=== PATIENT | male | born 1990 | race Caucasian/White ===

== ENCOUNTER 2021-07-10 00:48 | Emergency (ER) | payer OTHER ==
[~2021-07-10] VITALS: Ht 172.7 cm; Wt 48.0 kg
[2021-07-10 05:25] VITALS: BP 115/86
[2021-07-10] MEDS ORDERED: HYDR-3965 PO (06:07)
[2021-07-10] MEDS ORDERED: AMOX-117 PO (06:07)
== END 2021-07-10 06:28 | disposition home or self-care (01) ==
LOC: ER 00:49
DX: K02.9 Dental caries, unspecified (principal); K08.89 Other specified disorders of teeth and supporting structures; F17.200 Nicotine dependence, unspecified, uncomplicated
CPT/HCPCS: 99283

== ENCOUNTER 2021-10-05 13:44 | Emergency (ER) | payer BC, OTHER ==
[~2021-10-05] VITALS: Ht 172.7 cm; Wt 50.0 kg
[2021-10-05 15:07] VITALS: BP 122/94
[2021-10-05] MEDS ORDERED: ondansetron/PF 4mg/2ml inj IV ONE (15:30)
[2021-10-05] MEDS ORDERED: normal saline 1000ML IV soln IVB ONE (15:30)
[2021-10-05 15:41] LABS: BASOPHILS % (AUTO) 0.1 % (0-1); EOSINOPHILS % (AUTO) 0.2 % (0-6); HEMATOCRIT 44.8 % (42.0-52.0); HEMOGLOBIN 15.3 g/dl (14.0-17.9); LYMPHOCYTES # (AUTO) 1.1 X10'3 (1.1-4.8); MEAN CORPUSCULAR HEMOGLOBIN 32.1 PG (27.0-31.0); MEAN CORPUSCULAR HGB CONC 34.1 g/dL (33.0-36.5); MEAN CORPUSCULAR VOLUME 94.2 FL (78-98); MEAN PLATELET VOLUME 7.3 FL (7.4-10.4); MONOCYTES # (AUTO) 0.9 X10'3 (0-0.9); MONOCYTES % (AUTO) 7.3 % (2-12); NEUTROPHILS # (AUTO) 10.3 X10'3 (1.8-7.7); NEUTROPHILS % (AUTO) 83.4 % (42-75); PLATELET COUNT 278 X10'3 (140-440); RED BLOOD COUNT 4.76 X10'6 (4.70-6.10); RED CELL DISTRIBUTION WIDTH 13.4 % (11.5-14.5); WHITE BLOOD COUNT 12.4 X10'3 (4.5-11.0)
[2021-10-05 15:56] LABS: ALANINE AMINOTRANSFERASE 25 U/L (12-78); ALBUMIN 4.3 G/DL (3.4-5.0); ALBUMIN/GLOBULIN RATIO 1.2 (1.1-1.5); ALKALINE PHOSPHATASE 93 IU/L (46-116); ANION GAP 9 (8-16); ASPARTATE AMINO TRANSFERASE 19 U/L (10-37); BILIRUBIN,TOTAL 0.4 MG/DL (0.1-1.0); BLOOD UREA NITROGEN 13 MG/DL (7-18); BUN/CREATININE RATIO 20.6 (5.4-32.0); CHLORIDE 101 MMOL/L (99-107); CREATININE 0.63 MG/DL (0.60-1.10); GLUCOSE 145 MG/DL (70-104); LIPASE < 50 U/L (73-393); POTASSIUM 3.5 MMOL/L (3.5-5.1); SODIUM 136 MMOL/L (135-145); TOTAL CARBON DIOXIDE 26.2 MMOL/L (24-32); TOTAL PROTEIN 7.8 G/DL (6.4-8.2); eGFR > 90 ML/MIN
[2021-10-05] MEDS ORDERED: POLY119P2 PO (18:35)
[2021-10-05] MEDS ORDERED: ONDA4TAB12 PO (18:36)
== END 2021-10-05 18:49 | disposition home or self-care (01) ==
LOC: ER 13:45
DX: R10.84 Generalized abdominal pain (principal); K59.00 Constipation, unspecified; R11.10 Vomiting, unspecified
CPT/HCPCS: 36415; 74176; 80053; 83690; 85025; 99284

== ENCOUNTER 2023-02-24 21:48 | Emergency (ER) | payer BC, MEDICAID ==
[~2023-02-24] VITALS: Ht 172.7 cm; Wt 47.3 kg
[~2023-02-24 21:48] MED LIST: ONDA4TAB12 PO; POLY119P2 PO
[2023-02-24 22:10] LABS: BASOPHILS # (AUTO) 0.1 X10'3 (0-0.2); BASOPHILS % (AUTO) 0.4 % (0-1); EOSINOPHILS # (AUTO) 0.1 X10'3 (0-0.9); EOSINOPHILS % (AUTO) 0.4 % (0-6); HEMATOCRIT 44.5 % (42.0-52.0); LYMPHOCYTES # (AUTO) 2.4 X10'3 (1.1-4.8); LYMPHOCYTES % (AUTO) 14.8 % (21-51); MEAN CORPUSCULAR HEMOGLOBIN 31.3 PG (27.0-31.0); MEAN CORPUSCULAR HGB CONC 33.7 g/dL (33.0-36.5); MEAN CORPUSCULAR VOLUME 92.9 FL (78-98); MEAN PLATELET VOLUME 7.3 FL (7.4-10.4); MONOCYTES # (AUTO) 1.2 X10'3 (0-0.9); MONOCYTES % (AUTO) 7.6 % (2-12); NEUTROPHILS # (AUTO) 12.3 X10'3 (1.8-7.7); NEUTROPHILS % (AUTO) 76.8 % (42-75); PLATELET COUNT 338 X10'3 (140-440); RED BLOOD COUNT 4.79 X10'6 (4.70-6.10)
[2023-02-24] MEDS ORDERED: OMEP40CA21 PO (22:20)
[2023-02-24] MEDS ORDERED: BUPR8TAB4 SL (22:20)
[2023-02-24] MEDS ORDERED: SUCR1TAB PO (22:20)
--- NOTE | 2023-02-24 22:21 | NUR ---
this primary rn has has last name as pt but no relationship to pt.
[2023-02-24 22:25] LABS: ALANINE AMINOTRANSFERASE 21 U/L (12-78); ALBUMIN 4.3 G/DL (3.4-5.0); ALBUMIN/GLOBULIN RATIO 1.3 (1.1-1.5); ALKALINE PHOSPHATASE 128 IU/L (46-116); ANION GAP 11 (8-16); ASPARTATE AMINO TRANSFERASE 12 U/L (10-37); BILIRUBIN,TOTAL 0.3 MG/DL (0.1-1.0); BLOOD UREA NITROGEN 14 MG/DL (7-18); BUN/CREATININE RATIO 20.9 (10.0-20.0); CHLORIDE 104 MMOL/L (99-107); CREATININE 0.67 MG/DL (0.60-1.10); ETHANOL < 0.010 GM/DL (0.0-0.010); GLUCOSE 121 MG/DL (70-104); POTASSIUM 3.7 MMOL/L (3.5-5.1); SODIUM 138 MMOL/L (135-145); TOTAL CARBON DIOXIDE 22.8 MMOL/L (24-32); TOTAL PROTEIN 7.5 G/DL (6.4-8.2); eGFR > 90 ML/MIN
--- NOTE | 2023-02-24 22:26 | NUR ---
pt in room beself stating " mama i can hear you" loudly.
[2023-02-24] MEDS ORDERED: haloperidol 5mg tablet PO ONE (22:40)
[2023-02-24] MEDS ORDERED: LORazepam 1 MG tablet PO ONE (22:40)
[2023-02-24] MEDS ORDERED: diphenhydrAMINE 25mg capsule PO ONE (22:40)
--- NOTE | 2023-02-24 22:45 | NUR ---
HE HAS WALKED OUT OF HIS ROOM TWICE.
--- NOTE | 2023-02-24 23:37 | NUR ---
pt moved to rm 24.
--- NOTE | 2023-02-24 23:47 | NUR ---
The patient to bed 24 and was cooperative with the move. He did provide a urine sample. He is currently resting on his bed.
[2023-02-25] MEDS ORDERED: quetiapine 100mg tablet PO STA (00:12)
--- NOTE | 2023-02-25 00:13 | NUR ---
The patient is periodically calling out and stated he is hearing voices and is scared. Dr. Ramon made aware. Orders received.
[2023-02-25 00:24] LABS: URINE AMPHETAMINE SCREEN NEGATIVE (Neg); URINE BARBITUATE SCREEN NEGATIVE (Neg); URINE BENZODIAZEPINES SCREEN NEGATIVE (Neg); URINE CANNABINOID SCREEN POSITIVE (Neg); URINE COCAINE SCREEN NEGATIVE (Neg); URINE METHADONE SCREEN NEGATIVE (Neg); URINE OPIATE SCREEN POSITIVE (Neg); URINE PHENCYCLIDINE SCREEN NEGATIVE (Neg)
--- NOTE | 2023-02-25 00:55 | NUR ---
PACKET SENT TO [facility]
--- NOTE | 2023-02-25 01:22 | NUR ---
The patient appears to be sleeping but very restlessly. He stands up and makes odd statements that are unrelated to reality. He periodically yells out loud groans. He requires frequent reassurance and he accepts redirection.
--- NOTE | 2023-02-25 01:44 | NUR ---
The patient periodically very agitated.
[2023-02-25] MEDS ORDERED: ketamine 50 mg/ml 10ml vial IM ONE (02:25)
[2023-02-25] MEDS ORDERED: ketamine 10mg/ml 20ml inj vial IM ONE (02:35)
--- NOTE | 2023-02-25 03:02 | NUR ---
The patient has been yelling and periodically very agitated and bizarre. Dr. Ramon at the bedside. Security at the bedside. Medications given after consult with pharmacy and ER credit charge authorizer. Continuous pulse ox in place.
--- NOTE | 2023-02-25 03:26 | NUR ---
The patient appears to be sleeping. He did call out very briefly. [id number] on RA HR 88 and BP 118/80
[2023-02-25] MEDS ORDERED: OLANZapine **IM** 10 mg inj. IM ONE (04:20)
--- NOTE | 2023-02-25 04:26 | NUR ---
The patient exhibiting confused and unable to show regard for his own safety. He suddenly sat up and almost fell out of bed but was able to catch himself. Discussed patient's presentation with Dr. Ramon and charge account authorizer and patient moved to bed 16 in the main ER.
[2023-02-25] MEDS ORDERED: normal saline 1000ml 1,000 ML IV ONE (04:30)
[2023-02-25] MEDS ORDERED: metoclopramide 5 mg/ml inj IV ONE (04:35)
--- NOTE | 2023-02-25 04:55 | NUR ---
pt moved back to main ED rm 16 from overflow bilateral wrist soft restraints applied. IV started and medications given. pt appears altered and states "i have HIV but havent been sick". also states "wants rehab" but won't clarify for what substance.
--- NOTE | 2023-02-25 05:03 | NUR ---
pt attempting to remove soft restraits, per dr torres- place 4 point hard restraints.
[2023-02-25] MEDS ORDERED: LORazepam 2 mg/ml vial IM ONE ×3 (05:05→09:10)
[2023-02-25 05:31] LABS: CREATINE KINASE 162 U/L (39-308)
[2023-02-25] MEDS ORDERED: thiamine 100mg/ml 2ml inj. IV ONE (06:00)
[2023-02-25 06:33] LABS: HIV ANTIBODY 1&2 RAPID NON-REACTIVE (Neg)
[2023-02-25] MEDS ORDERED: haloperidol lactate 5mg/ml inj IM ONE (07:30)
[2023-02-25] MEDS ORDERED: diphenhydrAMINE 50 mg/ml inj IM ONE (07:30)
--- NOTE | 2023-02-25 08:15 | NUR ---
RN ADMIN BENADRYL/ATIVAN/HALDOL IM AND ATTEMPTED TO REMOVE RESTRAINTS. PT IS STILL TRYING TO COME OUT OF BED AND TRIED TO SWING AT RN. PT PLACED BACK IN HARD RESTRAINTS. DR MCGRAW NOTIFIED AND CONT RESTRAINT ORD. CT NOTIFIED. PT IS UNABLE TO HOLD STILL FOR EKG.
--- NOTE | 2023-02-25 09:30 | NUR ---
PER DR MCGRAW RN MAY CONT ORD FOR RESTRAINTS.
[2023-02-25] MEDS ORDERED: dexmedetomidin/NS 400mcg/100ml 100 ML IV SCH (10:05)
--- NOTE | 2023-02-25 10:50 | NUR ---
pt iv infilitrated left forearm. changed urine linens, admin ativan im. Put pulse ox sticky on toe.
--- NOTE | 2023-02-25 11:30 | NUR ---
PER DR MCGRAW RN MAY CONT ORD FOR RESTRAINTS.
--- NOTE | 2023-02-25 11:57 | NUR ---
Back from CT via [facility] at this time.
[2023-02-25] MEDS ORDERED: normal saline 1000ml 1,000 ML IV SCH (12:00)
[2023-02-25] MEDS: sucralfate 1 gm tablet PO SCH ×4 (12:09→21:00)
[2023-02-25] MEDS: pantoprazole 40mg Tablet.DR PO SCH (12:09)
[2023-02-25 13:17] LABS: CREATINE KINASE 1369 U/L (39-308)
--- NOTE | 2023-02-25 13:30 | NUR ---
PER DR MCGRAW RN MAY CONT ORD FOR RESTRAINTS.
[2023-02-25 14:27] LABS: APPEARANCE,CSF CLEAR; CSF SUPERNATANT COLOR COLORLESS; CSF VOLUME 4 ML
[2023-02-25 14:28] LABS: TUBE# COUNTED 4
[2023-02-25 14:31] LABS: CSF RBC 1 /CU MM (0); CSF WBC CT 1 /CU MM (0-5)
[2023-02-25 14:45] LABS: GLUCOSE,CSF 68 MG/DL (40-75); TOTAL PROTEIN,CSF 47 MG/DL (15-45)
--- NOTE | 2023-02-25 15:18 | NUR ---
Patient up to bedside commode at this time, able to transfer independently.
[2023-02-25 15:24] LABS: CLARITY,URINE CLEAR (Clear); COLOR,URINE STRAW (Yellow); GLUCOSE, URINE NEGATIVE (Neg); KETONES,URINE 15 mg/dl (Neg); LEUKOCYTE ESTERASE ,URINE NEGATIVE (Neg); NITRITES, URINE NEGATIVE (Neg); OCCULT BLOOD,URINE NEGATIVE (Neg); PROTEIN,URINE NEGATIVE (Neg); UROBILINOGEN,URINE 0.2 E.U/dL (0.2-1.0)
[2023-02-25 15:32] LABS: UA COLLECTION TYPE STRAIGHT CATH
--- NOTE | 2023-02-25 15:38 | NUR ---
RN RETURNED PRECEDEX DRIP TO PHARMACY. PER DR MCGRAW NO LONGER NEEDED.
--- NOTE | 2023-02-25 15:46 | NUR ---
pt awake and oriented x3. pt agreed to stay in bed and cooperate and rn educated pt that she would leave the restraints off. rn will cont to monitor.
[2023-02-25] MEDS ORDERED: aspirin 325mg tablet PO ONE (15:55)
--- NOTE | 2023-02-25 16:59 | NUR ---
RN COMPLETED MRI FORM WITH PT MOTHER CATARINO LIMA AND PT SIGNED FORM AFTER RN REVIEWED IT WITH HIM. PT WILL BE TAKEN TO MRI WITH RN AND SECURITY.
--- NOTE | 2023-02-25 19:15 | NUR ---
Patient arrived from main ER. Report from Gerri cook night. Patient is oriented to person only. W/D, good color.
--- NOTE | 2023-02-25 19:37 | NUR ---
Packet resent to [facility] Office.
--- NOTE | 2023-02-25 20:13 | NUR ---
Patient is sleeping on his left side. He has self repositioned. Per ER MD who came by to check in on patients status, the patient was oriented X3 earlier.
--- NOTE | 2023-02-25 20:46 | NUR ---
Patient is sleeping quietly. In view from nurses station. A sitter is present as patient is a fall risk.
--- NOTE | 2023-02-25 21:00 | NUR ---
Patimandit repositions self in bed and talks in his sleep. Good color.
--- NOTE | 2023-02-25 21:04 | NUR ---
Patient has no IV, it is unknown when it was DC'd or how much fluid patient received.
--- NOTE | 2023-02-25 21:21 | NUR ---
Patients 5150 is invalid per [facility]. [facility] documentation [facility]. This securities underwriter will speak with RAISSA BARON about a 1799 order/hold. A second packet was sent to [facility] office.
--- NOTE | 2023-02-25 22:32 | NUR ---
Patient continues to sleep quietly. No distress. Good color.
--- NOTE | 2023-02-26 00:04 | NUR ---
Patient awakened, he complains of "I'm not feeling good," he complains of depression and anxiety too. Patient drinks some water and did not eat any food. This curriculum writer advised Dr. Luna. Michael ordered.
[2023-02-26] MEDS ORDERED: OLANZapine 2.5MG tablet PO ONE (00:05)
[2023-02-26] MEDS ORDERED: LORazepam 1 MG tablet PO ONE ×2 (00:05→09:30)
--- NOTE | 2023-02-26 00:27 | NUR ---
Patient awoke, somewhat restless. Patient re-oriented to time. He states he will try to sleep.
--- NOTE | 2023-02-26 03:02 | NUR ---
Patient up to bathroom then back to bed.
--- NOTE | 2023-02-26 05:03 | NUR ---
Patient sleeping on his right side, no distress.
--- NOTE | 2023-02-26 07:00 | NUR ---
Received Pt in bed sleeping w/o distress at this time. Will continue to monitor.
[2023-02-26] MEDS: sucralfate 1 gm tablet PO SCH ×4 (08:21→22:05)
[2023-02-26] MEDS: pantoprazole 40mg Tablet.DR PO SCH (08:21)
--- NOTE | 2023-02-26 09:00 | NUR ---
Pt woke and ate breakfast after taking AM meds w/o issue. Pt making loud sounds at times and wants to leave unit to smoke. Pt responds well to redirection.
[2023-02-26] MEDS ORDERED: nicotine 14mg patch - 24hr TD ONE (09:30)
--- NOTE | 2023-02-26 12:35 | NUR ---
Pt ate portion of lunch and visited with mom. Pt able to smile at joking and responds well to reassurance that he is doing well and is being kept safe.
--- NOTE | 2023-02-26 14:53 | NUR ---
Order obtained from MD for nicotine patch and was placed on left shoulder. Pt also received Ativan 1mg PO for anxiety.
[2023-02-26] MEDS: acetaminophen 325mg tablet PO PRN ×2 (15:34→22:05)
--- NOTE | 2023-02-26 16:35 | NUR ---
Pt given tylenol for schmid with good effect. He continues to make loud grunting sounds and is intermitently tearful. Pt needs reasurance frequently.
--- NOTE | 2023-02-26 17:27 | NUR ---
Pt attemted to get into another Pt's belongings and needed firm redirection. Pt loud in bed and yelling and cursing at times. Pt responds to redirection.
[2023-02-26] MEDS: NICOTINE POLACRILEX 2 MG LOZENGE BC PRN ×2 (17:47→19:50)
--- NOTE | 2023-02-26 18:30 | NUR ---
assumed care of pt from Martin IVORY, pt is resting quietly on bed, talks loudly once in awhile. Pt is redirectable, cooperative
--- NOTE | 2023-02-26 19:24 | NUR ---
pt is resting quietly.
[2023-02-26] MEDS: LORazepam 1 MG tablet PO PRN (19:51)
--- NOTE | 2023-02-26 19:51 | NUR ---
pt asking to smoke, threatening leave, pt is redirectable and agreed to stay, gave pt nicotine lozenge and ativan
--- NOTE | 2023-02-26 20:29 | NUR ---
pt keeps c/o of headache, pt has lumbar puncture yesterday, Dr Rodríguez aware and instructed me to have pt drink water and lie flat, also gave verbal order for benadyl 50mg PO for insomnia
[2023-02-26] MEDS ORDERED: diphenhydrAMINE 25mg capsule PO ONE (20:35)
--- NOTE | 2023-02-26 20:57 | NUR ---
pt c/o headache, instructed pt to sip water and lie flat, pt is cooperative
--- NOTE | 2023-02-26 22:16 | NUR ---
pt said headache is gone, has been trying to sleep flat and sipping water. Restless off and on in bed
--- NOTE | 2023-02-26 23:02 | NUR ---
pt is sleeping, resp even and unlabored
--- NOTE | 2023-02-26 23:59 | NUR ---
pt has been sleeping, amb with steady gait to restroom
[2023-02-27] MEDS: LORazepam 1 MG tablet PO PRN ×4 (01:00→19:48)
--- NOTE | 2023-02-27 01:03 | NUR ---
ASSUMED CARE, PATIENT C/O HEADACHE, PLACED HEAD OF BED DOWN, GAVE WARM BLANKET AND GAVE PRN ATIVAN 1MG FOR AGIGATION
--- NOTE | 2023-02-27 02:05 | NUR ---
Patient laying on backside, crying out this investigative writer is sitiing with patient per his request, seems to help keep him quiter so that he is not waking up the unit
[2023-02-27] MEDS ORDERED: QUEtiapine 25mg tablet PO ONE (03:10)
[2023-02-27] MEDS ORDERED: ibuprofen 200mg tablet PO ONE (03:10)
--- NOTE | 2023-02-27 03:13 | NUR ---
Patient c/o headache, VORB Dr Josefina minaya. Patietn aware it will take a few mins to process
--- NOTE | 2023-02-27 03:41 | NUR ---
Patient trying to lay flat in bed, warm blanket given, re-covered patient patient is still restless
--- NOTE | 2023-02-27 04:35 | NUR ---
Patient is sleeping on his back snoring
--- NOTE | 2023-02-27 05:23 | NUR ---
Patient ambulated to the restroom, then laid back down
--- NOTE | 2023-02-27 06:03 | NUR ---
Patient request to walk in front of his room. Patient continues to yell out at random times, somewhat re-directable
--- NOTE | 2023-02-27 06:30 | NUR ---
Pt screaming and yelling constantly that his head hurts and he can't take it. Pt c/o 06/29 "boom boom" pounding headache pain. Pt will not stop yelling. Pt had a lumbar puncture in the afternoon on 02/25/23.
[2023-02-27] MEDS ORDERED: morphine 4 MG/ML inj SYRINge IM ONE (06:40)
[2023-02-27] MEDS ORDERED: LORazepam 1 MG tablet PO ONE ×2 (06:40→18:40)
--- NOTE | 2023-02-27 07:00 | NUR ---
Obtained orders from Dr Escobar for an additional Ativan 1 mg PO and Morphine 4 mg IM once. PO Ativan given at 0645. IM Morphine given at 0653 in left ventrogluteal.
--- NOTE | 2023-02-27 07:15 | NUR ---
Pt c/o nausea, asked for emesis bag. Pt given an emesis bag but managed to not throw up.
--- NOTE | 2023-02-27 07:30 | NUR ---
Pt expressed relief from his headache pain.
--- NOTE | 2023-02-27 07:30 | NUR ---
Tomas izaguirre in [facility] - 02/27/23 at 0956 by [email or web address] Patient resting in bed, talking to himself occasionally. No signs of distress.
--- NOTE | 2023-02-27 08:33 | NUR ---
Pt Pt is pleasantly disorganized. Pt asked, "Is my name Megan? Do I have big boobs?" Pt asked if he was in [place].
[2023-02-27] MEDS: pantoprazole 40mg Tablet.DR PO SCH (09:08)
[2023-02-27] MEDS: sucralfate 1 gm tablet PO SCH ×4 (09:09→19:56)
--- NOTE | 2023-02-27 10:03 | NUR ---
Note dmitriy in EDM - 02/27/23 at 1005 by KYAW Vital signs obtained. Vital signs were not done by noc shift this morning while pt was awake,yelling, and in severe pain.
--- NOTE | 2023-02-27 10:05 | NUR ---
Vital signs obtained. Vital signs were not done by noc shift this morning while pt was awake,yelling, and in severe pain.
[2023-02-27] MEDS: nicotine 14mg patch - 24hr TD SCH (10:48)
[2023-02-27] MEDS: acetaminophen 325mg tablet PO PRN (10:51)
--- NOTE | 2023-02-27 10:51 | NUR ---
Pt moaning and calling out. C/o headache pain again 02/27. PRN Tylenol 650 mg given at 1051. Also applied a 14 mg nicotine patch per patient request.
--- NOTE | 2023-02-27 12:00 | NUR ---
Pt lying in bed appears to be responding to internal stimuli at times, talking to himself.
--- NOTE | 2023-02-27 13:48 | NUR ---
pt mom's phone number is
[2023-02-27] MEDS: NICOTINE POLACRILEX 2 MG LOZENGE BC PRN ×2 (13:56→17:39)
--- NOTE | 2023-02-27 13:59 | NUR ---
Pt was crying and yelling stating "my brain is melting! I can't take another headache like this! I've got a headache from [place], Fuck, God! This fucking hurts." Notified Dr Escobar who gave order for [place] 10/325 mg PO Q8H PRN.
[2023-02-27] MEDS: HYDROcodone/acetaminophen 10/325mg tab PO PRN (14:20)
--- NOTE | 2023-02-27 14:24 | NUR ---
Dr Escobar instructed to give the patient caffeinated coffee or soda. Pt provided with 2 cups of regular caffeinated coffee. [place] 10/325 mg given at 1420.
--- NOTE | 2023-02-27 16:09 | NUR ---
Pt up to the bathroom.
--- NOTE | 2023-02-27 16:52 | NUR ---
Pt is asking if he is being discharged. Educated pt that the doctor has not cleared him for discharge. Asked pt if he lived in [place]. Pt replied,"yeah." Asked how he would get to [place]. Pt replied, "well if we're at [facility], I could get there pretty easy." Pt now is A/O X 2, oriented to person and place. Asked pt the date, pt stated, "I want to say that [birth year]is it March 13 2022?" Reoriented pt to today's date. Pt states that his parents could come and pick him up. Asked if he lived with his parents. Pt replied, "yeah, at the moment."
--- NOTE | 2023-02-27 18:30 | NUR ---
Patient c/o of headache 04/29, anxiety 04/29. Orders obtained from Dr. Rodríguez for [place] 10/325 x1 po and Ativan 1 mg x1 po. Pt is moaning in pain. RR even and unlabored.
[2023-02-27] MEDS ORDERED: HYDROcodone/acetaminophen 10/325mg tab PO ONE (18:40)
--- NOTE | 2023-02-27 19:50 | NUR ---
Patient's pain is still at an 8. Pt stated it's constant pressure in front of the head. 2nd Ativan 1mg given at 1948. dr Rodríguez gave order for one time [place] 5/325mg po. Pt still ,complaining of pain.
[2023-02-27] MEDS ORDERED: HYDROcodone/acetaminophen 5mg/325mg tablet PO ONE (19:55)
--- NOTE | 2023-02-27 20:47 | NUR ---
Patient still having pain, moaning loudly and crying out in pain at times. RR at 14 regular rate.
--- NOTE | 2023-02-27 21:50 | NUR ---
Patient is now snoring inbetween yelling out "Ow". RR even and unlabored. Pt is supine in bed.
--- NOTE | 2023-02-27 23:00 | NUR ---
Patient sleeping and will yell out at times in pain. Pt will fall back to sleep again. RR even and unlabored. monitort for safety.
--- NOTE | 2023-02-28 00:48 | NUR ---
Patient up to the bathroom with steady gait. No c/o pain while he walked by the NS. Monitor for pain and safety.
[2023-02-28] MEDS: NICOTINE POLACRILEX 2 MG LOZENGE BC PRN ×2 (00:58→17:58)
[2023-02-28] MEDS: LORazepam 1 MG tablet PO PRN ×3 (02:39→14:18)
[2023-02-28] MEDS: HYDROcodone/acetaminophen 10/325mg tab PO PRN ×2 (02:40→10:50)
--- NOTE | 2023-02-28 02:46 | NUR ---
Pt woke up in pain, moaning loudly. [place] 10/325mg and Ativan 1mg given for 6/10 pain level. Monitor for safety.
--- NOTE | 2023-02-28 04:29 | NUR ---
Pt back to sleep with intermittent moaning. RR even and unlabored, monitor for safety.
--- NOTE | 2023-02-28 06:34 | NUR ---
Assumed care from [facility] nurse. Pt in bed sleeping. RR even and unalabored. No s/s of distress. Pt in stable condition.
[2023-02-28] MEDS: pantoprazole 40mg Tablet.DR PO SCH (06:48)
[2023-02-28] MEDS: acetaminophen 325mg tablet PO PRN ×2 (06:48→14:18)
--- NOTE | 2023-02-28 07:37 | NUR ---
Pt awake in bed. Pt c/o headache. Admin Tylenol 650mg. Pt states somewhat effective for pain. Pt conts to yell out. Pt requesting to call his mom. Explained to Pt we can start calling family around 0800, Pt in agreement w/ POC.
[2023-02-28] MEDS: sucralfate 1 gm tablet PO SCH ×4 (08:03→21:00)
[2023-02-28] MEDS: nicotine 14mg patch - 24hr TD SCH (08:04)
--- NOTE | 2023-02-28 08:49 | NUR ---
Pt conts to yell out. Pt unable to control verbal outburts. Admin PRN. Pt up and down running to and from bathroom. Pt spoke to his mother.
--- NOTE | 2023-02-28 09:34 | NUR ---
Pt is calm and cooperative. Pt is laying down on his bed resting, eye are closed.
--- NOTE | 2023-02-28 10:35 | NUR ---
Pt sitting on bed. Pt conts to have verbal outburts.
--- NOTE | 2023-02-28 11:29 | NUR ---
Pt up and down. Pt conts to yell out. Pt has to be redirected.
--- NOTE | 2023-02-28 11:55 | NUR ---
Pt is having multiple crying episodes. Pt conts to have to be redirected.
--- NOTE | 2023-02-28 12:58 | NUR ---
Pt in bed, Pt finished his lunch. Pt is calm and cooperative.
--- NOTE | 2023-02-28 13:43 | NUR ---
Mother at bedside. Pt is being calm and cooperative.
--- NOTE | 2023-02-28 13:53 | NUR ---
Pt asked to share his lab results w/ his mother.
--- NOTE | 2023-02-28 14:35 | NUR ---
Pt walking around unit. Pt is calm.
--- NOTE | 2023-02-28 15:11 | NUR ---
Pt sitting on his bed yelling out. Pt needing to be redirected.
--- NOTE | 2023-02-28 16:10 | NUR ---
Pt in bed sleeping. Pt is calm.
--- NOTE | 2023-02-28 17:03 | NUR ---
Pt laying down in bed. Pt talking to himself, and staff.
--- NOTE | 2023-02-28 17:16 | NUR ---
Pt having multiple crying episodes
[2023-02-28] MEDS ORDERED: HYDROcodone/acetaminophen 10/325mg tab PO STA (17:50)
[2023-02-28] MEDS ORDERED: haloperidol lactate 5mg/ml inj IM STA (17:50)
--- NOTE | 2023-02-28 18:28 | NUR ---
pt. recieved awake lying in bed
--- NOTE | 2023-02-28 21:07 | NUR ---
pt. sleeping without difficulty.
--- NOTE | 2023-02-28 22:46 | NUR ---
Pt. awaken; yelled out and fell back to sleep.
--- NOTE | 2023-03-01 00:25 | NUR ---
pt. sleeping;no distress
--- NOTE | 2023-03-01 01:31 | NUR ---
pt. awake and ambulated to the restroom
[2023-03-01] MEDS: NICOTINE POLACRILEX 2 MG LOZENGE BC PRN ×3 (01:45→16:33)
[2023-03-01] MEDS: HYDROcodone/acetaminophen 10/325mg tab PO PRN ×2 (01:49→10:04)
--- NOTE | 2023-03-01 01:53 | NUR ---
pt. in bed appears to be in pain. Pt. rates pain 10/10 to head. PRN norco administered. Pt. lying in bed with blanket over his head.
[2023-03-01] MEDS: LORazepam 1 MG tablet PO PRN ×3 (02:21→17:41)
--- NOTE | 2023-03-01 02:24 | NUR ---
pt. sitting up in bed yelling out and stating "I just want to see my kids again". PRN paxton provided to pt.
--- NOTE | 2023-03-01 03:48 | NUR ---
pt. lying on left side sleeping. No distress.
--- NOTE | 2023-03-01 05:03 | NUR ---
pt. continues sleeping without difficulty.
--- NOTE | 2023-03-01 06:51 | NUR ---
Patient sleeping comfortably, breathing normally.
[2023-03-01] MEDS: pantoprazole 40mg Tablet.DR PO SCH (07:44)
[2023-03-01] MEDS: nicotine 14mg patch - 24hr TD SCH (07:45)
[2023-03-01] MEDS: sucralfate 1 gm tablet PO SCH ×4 (08:19→20:41)
--- NOTE | 2023-03-01 08:57 | NUR ---
Patient asleep comfortably at this time. Addendum: 03/01/23 at 0858 by CHARITO Patient have had episode of anxiety at earlier time and was given Ativan PO
--- NOTE | 2023-03-01 10:10 | NUR ---
Patient complaining of frontal headache, denies nausea and any other symptoms. Glidden given.
--- NOTE | 2023-03-01 11:18 | NUR ---
Patient currently sleeping comfortably, no sign of distress.
[2023-03-01] MEDS: acetaminophen 325mg tablet PO PRN ×2 (12:22→17:51)
--- NOTE | 2023-03-01 12:24 | NUR ---
Lunch tray served to the patient.
--- NOTE | 2023-03-01 13:46 | NUR ---
Mother at bedside currently.
--- NOTE | 2023-03-01 16:47 | NUR ---
Patient currently resting and calm.
--- NOTE | 2023-03-01 17:05 | NUR ---
Patient complaining of abdominal pain despite getting Sucralfate. I asked the patient when was the last time he had a bowel movement, he said to me "I don't know when!" I spoke to Dr. Encarnacion about this, received order for Dulcolax 5 mg PO PRN
--- NOTE | 2023-03-01 17:45 | NUR ---
Patient started getting anxious, pacing around and wanted to leave. The security personnel came by, talked to the patient reminded him that he was on mental health hold. Patient was redirected to his bed. Ativan PO given for anxiety and Dulcolax tab given for constipation.
[2023-03-01] MEDS: bisacodyl 5mg tablet.DR PO PRN (17:49)
--- NOTE | 2023-03-01 18:47 | NUR ---
pt resting on bed no visual signs of distress nor discomfort.
--- NOTE | 2023-03-01 19:42 | NUR ---
Pt resting comfortably, just used restroom, no complaints or changes in behavior att.
--- NOTE | 2023-03-01 21:45 | NUR ---
Pt is resting comfortably, no complaints att.
--- NOTE | 2023-03-01 23:50 | NUR ---
Pt resting comfortably att. Sleeping well.
[2023-03-02] MEDS: LORazepam 1 MG tablet PO PRN ×3 (01:49→18:00)
--- NOTE | 2023-03-02 01:55 | NUR ---
Pt is up requesting lotion for rash to right wrist, stated a doctor will round on patient in the am. Pt now resting.
[2023-03-02] MEDS: NICOTINE POLACRILEX 2 MG LOZENGE BC PRN ×2 (02:26→18:44)
--- NOTE | 2023-03-02 04:00 | NUR ---
Pt was anxious earlier, requested ativan, administered and pt is now sleeping well.
--- NOTE | 2023-03-02 06:30 | NUR ---
Patient resting in bed. Slept well through night. Received report from night nurse CARLOS AWAD. Assumed care of patient. Will continue to monitor
--- NOTE | 2023-03-02 06:30 | NUR ---
Patient resting in bed. Slept well through night. Received report from night nurse CARLOS AWAD. Assumed care of patient. Will continue to monitor
[2023-03-02] MEDS: HYDROcodone/acetaminophen 10/325mg tab PO PRN ×3 (06:46→23:21)
[2023-03-02] MEDS: pantoprazole 40mg Tablet.DR PO SCH (06:46)
[2023-03-02] MEDS: sucralfate 1 gm tablet PO SCH ×4 (08:00→20:28)
--- NOTE | 2023-03-02 08:15 | NUR ---
Patient yelling, crying and complaining of pain. PRN pain medication given for pain and was effective for a small amount of time. around 82 Addendum: 03/02/23 at 1155 by TSTUDER Patient yelling and screaming and complaining of pain. PRN pain medication given and effective short term. Patient ate breakfast then puked. Zofran ordered and given per orders and has been effective.
[2023-03-02] MEDS ORDERED: ondansetron 4mg rapidly disintigrating tab PO PRN (09:00)
[2023-03-02] MEDS: nicotine 14mg patch - 24hr TD SCH (09:16)
--- NOTE | 2023-03-02 12:00 | NUR ---
Patient sitting at end of bed eating lunch at this time and appropriate with peers and staff.
[2023-03-02 12:59] VITALS: BP 136/77
--- NOTE | 2023-03-02 13:00 | NUR ---
Patient transported to [facility] for blood patch procedure.
[2023-03-02] MEDS ORDERED: IOPAMIDOL 10 ML VIAL IT ONE (13:08)
[2023-03-02 13:14] VITALS: BP 121/77
--- NOTE | 2023-03-02 13:42 | NUR ---
Patient returned from [facility]. Alert, no c/o pain or discomfort at this time. Will continue to monitor.
--- NOTE | 2023-03-02 13:44 | NUR ---
Tomas izaguirre in [facility] - 03/02/23 at 1344 by DIGNAUDER [id number]
--- NOTE | 2023-03-02 14:25 | NUR ---
pt keeps moving and turning on his side right after procedure. As soon as he got back within 5 mins pt keeps sitting up and will not follow directions. He is refusing to lay down and keeps crossing his legs.
--- NOTE | 2023-03-02 14:29 | NUR ---
Upon returning to overflow unit post procedure, pt refused to follow post procedure instructions to lie flat and not sit up or turn on his side. pt stated he "understood" the intructions despite immediatly turning onto his side. pt has been re-educated several times of importance on lieing flat and yet pt still continues to sit up and turn on his side. attempted sitting at pt bedside to provide ongoing reminders about lieing flat but pt continues to be non compliant with directions.
--- NOTE | 2023-03-02 15:45 | NUR ---
patient will not follow any instructions from staff or peers. Will not lay flat or stay still. Does not answer appropriately when explained the importance of following the doctors post op orders after procedure. PRN norco given for pain.
--- NOTE | 2023-03-02 17:26 | NUR ---
patient has been sleeping. Woke up to eat dinner has denied any pain at this time. Will report to night nurse.
--- NOTE | 2023-03-02 20:00 | NUR ---
Patient in bed watching TV.
[2023-03-02] MEDS ORDERED: traZODone 150mg tablet PO ONE (21:30)
--- NOTE | 2023-03-02 22:01 | NUR ---
Patient in bed with eyes close
--- NOTE | 2023-03-03 00:02 | NUR ---
Patient in bed with eyes closed. Patient reported pain 4/10. Pain med effective.
[2023-03-03] MEDS: LORazepam 1 MG tablet PO PRN ×3 (00:08→12:37)
--- NOTE | 2023-03-03 02:43 | NUR ---
Patient in bed with eyes close
--- NOTE | 2023-03-03 04:00 | NUR ---
Patient in bed with eyes close
--- NOTE | 2023-03-03 05:42 | NUR ---
Pt in bed watching tb Addendum: 03/03/23 at 0543 by [email or web address] Patient in bed with eyes close. Patient in bed watching TV. Patient was cooperative this shift, took meds with no issues noted. No s/s of distress at this time.
[2023-03-03] MEDS: pantoprazole 40mg Tablet.DR PO SCH (07:38)
[2023-03-03] MEDS: sucralfate 1 gm tablet PO SCH ×4 (07:38→20:16)
[2023-03-03] MEDS: nicotine 14mg patch - 24hr TD SCH (07:39)
[2023-03-03] MEDS: triamcinolone acetonide 0.5% cream 15gm TP SCH ×2 (08:56→20:16)
--- NOTE | 2023-03-03 17:18 | NUR ---
Patient has been cooperative, and stable most of the day. The pt had a few outbursts of stating "he doesnt want to be in this mental lock down anymore & I just want by kids." Also said that to his mom while talking on the phone. Pt has been intaking nutrution well today, and using the BR. Most of the day the patient was resting in bed, while also accompanied by his parents t bedside for a couple of hours. Pt denied suicidal ideations/ haullicunations or self harm today on shift. Q15 min checks performed on shift and also in line of site today. Patient has felt minimal relief from the Triamcinolone cream that is now to be applied to his Rt forearm for [place].
[2023-03-03] MEDS: HYDROcodone/acetaminophen 10/325mg tab PO PRN (17:52)
--- NOTE | 2023-03-03 19:00 | NUR ---
Received pt finishing up with dinner tray, watching TV quietly.
[2023-03-03] MEDS: NICOTINE POLACRILEX 2 MG LOZENGE BC PRN (19:29)
[2023-03-03] MEDS ORDERED: traZODone 150mg tablet PO SCH (20:00)
--- NOTE | 2023-03-03 21:30 | NUR ---
Pt states he is doing good, states he hears voices that talk to him directly and at times thinks God is talking to him. Denies SI. Pt watched TV for awhile and appears to be sleeping.
[2023-03-04] MEDS: LORazepam 1 MG tablet PO PRN ×2 (02:20→09:50)
--- NOTE | 2023-03-04 04:28 | NUR ---
Pt appears to be sleeping
[2023-03-04 05:31] VITALS: BP 117/63
[2023-03-04] MEDS: pantoprazole 40mg Tablet.DR PO SCH (07:51)
[2023-03-04] MEDS: sucralfate 1 gm tablet PO SCH ×2 (07:51→12:17)
[2023-03-04] MEDS: triamcinolone acetonide 0.5% cream 15gm TP SCH (07:51)
[2023-03-04] MEDS: nicotine 14mg patch - 24hr TD SCH (07:51)
--- NOTE | 2023-03-04 08:50 | NUR ---
Pt took morning medication with no complaints. Pt ate breakfast at bedside. Pt currently laying in bed reading, no acute distress noted at this time.
[2023-03-04] MEDS: bisacodyl 5mg tablet.DR PO PRN (09:50)
--- NOTE | 2023-03-04 10:05 | NUR ---
Pts mom called to talk to him. While pt was talking to his mom on the phone he bagan to get very anxious and kept saying "stop putting me down". After phone call pt began pacing the unit and going in and out of the bathroom. Nurse approached pt and told him that he looks anxious and offered to get him prn ativan. Pt agreed to ativan and requested a laxative because he hasnt had a BM in days. Nuse gave both PRNs and pt currently reading on his bed.
[2023-03-04] MEDS ORDERED: OLAN10TA3 PO (12:28)
[2023-03-04] MEDS ORDERED: BUPR8TAB4 SL (12:28)
[2023-03-04] MEDS ORDERED: TRAZ150T78 PO (12:28)
[2023-03-04 17:14] LABS: LYME IGG P23 AB Absent (.); LYME IGG P28 AB Absent (.); LYME IGG P30 AB Absent (.); LYME IGG P41 AB Absent (.); LYME IGG P45 AB Absent (.); LYME IGG P58 AB Absent (.); LYME IGG P66 AB Absent (.); LYME IGG P93 AB Absent (.); LYME IGG WB INTERP Negative (.); LYME IGM P23 AB Absent (.); LYME IGM P39 AB Absent (.); LYME IGM P41 AB Absent (.); LYME IGM WB INTERP Negative (.)
== END 2023-03-04 12:41 | disposition home or self-care (01) ==
LOC: ER 21:48
DX: F15.959 Other stimulant use, unspecified with stimulant-induced psychotic disorder, unspecified (principal); Z20.822 Contact with and (suspected) exposure to COVID-19; R41.0 Disorientation, unspecified; E86.0 Dehydration
CPT/HCPCS: 36415; 70450; 80053; 80305; 80320; 81003; 82550; 82945; 82948; 83605; 84145; 84157; 84443; 85025; 86617; 86703; 87015; 87040; 87070; 87811; 89051; 99285; J1200; J1630; J2060; J2765; J3411; J3490; J7030; Q0163

== ENCOUNTER 2023-09-28 08:33 | Emergency (ER) | payer MEDICAID ==
[~2023-09-28] VITALS: Ht 172.7 cm; Wt 55.5 kg
[~2023-09-28 08:33] MED LIST changes: +BUPR8TAB4 SL; +OLAN10TA3 PO; +OMEP40CA21 PO; -ONDA4TAB12 PO; -POLY119P2 PO; +SUCR1TAB PO; +TRAZ150T78 PO
[2023-09-28 09:09] LABS: BILIRUBIN,URINE NEGATIVE (Neg); CLARITY,URINE CLEAR (Clear); COLOR,URINE YELLOW (Yellow); GLUCOSE, URINE NEGATIVE (Neg); KETONES,URINE >=80 mg/dl (Neg); LEUKOCYTE ESTERASE ,URINE NEGATIVE (Neg); NITRITES, URINE NEGATIVE (Neg); OCCULT BLOOD,URINE NEGATIVE (Neg); PH,URINE >=9.0 (4.8-8.0); PROTEIN,URINE 30 mg/dl (Neg); UROBILINOGEN,URINE 0.2 E.U/dL (0.2-1.0)
[2023-09-28 09:28] LABS: UA COLLECTION TYPE CLN CATCH MIDSTREAM
[2023-09-28 09:30] LABS: MUCUS STRANDS MODERATE /LPF (Neg); SQUAMOUS EPITHELIAL CELL,UR FEW /LPF (FEW); WBC,URINE 0-4 /HPF (0-4)
[2023-09-28 09:31] LABS: AMORPHOUS PHOSPHATES 1+; BACTERIA,URINE FEW /HPF (Neg); RBC,URINE 0-2 /HPF (0-2)
[2023-09-28 09:41] LABS: BASOPHILS % (AUTO) 0.3 % (0-1); EOSINOPHILS % (AUTO) 0.1 % (0-6); HEMATOCRIT 47.5 % (42.0-52.0); HEMOGLOBIN 16.2 g/dl (14.0-17.9); LYMPHOCYTES # (AUTO) 1.3 X10'3 (1.1-4.8); LYMPHOCYTES % (AUTO) 11.4 % (21-51); MEAN CORPUSCULAR HEMOGLOBIN 31.9 PG (27.0-31.0); MEAN CORPUSCULAR HGB CONC 34.1 g/dL (33.0-36.5); MEAN CORPUSCULAR VOLUME 93.4 FL (78-98); MEAN PLATELET VOLUME 7.6 FL (7.4-10.4); MONOCYTES # (AUTO) 0.9 X10'3 (0-0.9); MONOCYTES % (AUTO) 7.6 % (2-12); NEUTROPHILS # (AUTO) 9.5 X10'3 (1.8-7.7); NEUTROPHILS % (AUTO) 80.6 % (42-75); PLATELET COUNT 328 X10'3 (140-440); RED BLOOD COUNT 5.09 X10'6 (4.70-6.10); RED CELL DISTRIBUTION WIDTH 13.2 % (11.5-14.5); WHITE BLOOD COUNT 11.7 X10'3 (4.5-11.0)
[2023-09-28 09:55] LABS: ALANINE AMINOTRANSFERASE 23 U/L (12-78); ALBUMIN 4.5 G/DL (3.4-5.0); ALBUMIN/GLOBULIN RATIO 1.2 (1.1-1.5); ALKALINE PHOSPHATASE 140 IU/L (46-116); ANION GAP 13 (8-16); ASPARTATE AMINO TRANSFERASE 18 U/L (10-37); BILIRUBIN,TOTAL 0.7 MG/DL (0.1-1.0); BLOOD UREA NITROGEN 13 MG/DL (7-18); BUN/CREATININE RATIO 16.5 (10.0-20.0); CALCIUM 9.3 MG/DL (8.5-10.1); CHLORIDE 95 MMOL/L (99-107); CREATININE 0.79 MG/DL (0.60-1.10); GLUCOSE 108 MG/DL (70-104); LIPASE 18 U/L (16-77); POTASSIUM 3.1 MMOL/L (3.5-5.1); SODIUM 135 MMOL/L (135-145); TOTAL CARBON DIOXIDE 27.5 MMOL/L (24-32); TOTAL PROTEIN 8.3 G/DL (6.4-8.2); eCRCL 105 ML/MIN; eGFR > 90 ML/MIN
[2023-09-28 12:29] VITALS: TEMP 97.7
[2023-09-28] MEDS ORDERED: proCHLORperazine 10 MG/2 ml inj IV ONE (13:30)
[2023-09-28] MEDS ORDERED: normal saline 1000ml 1,000 ML IV ONE (13:30)
[2023-09-28] MEDS ORDERED: ondansetron/PF 4mg/2ml inj IV ONE ×2 (13:30→15:30)
[2023-09-28] MEDS ORDERED: diphenhydrAMINE 50 mg/ml inj IV ONE (13:50)
[2023-09-28] MEDS ORDERED: potassium Cl 20 mEq SR tablet PO ONE (14:00)
[2023-09-28] MEDS ORDERED: FAMO40TA73 PO (14:44)
[2023-09-28] MEDS ORDERED: ONDA4TAB12 PO (14:44)
[2023-09-28] MEDS ORDERED: PANT20TA18 PO (14:44)
[2023-09-28] MEDS ORDERED: morphine 4 MG/ML inj SYRINge IV ONE (15:30)
[2023-09-28 17:34] VITALS: BP 125/80; PULSE 92; RESP 18; O2SAT 99
== END 2023-09-28 16:33 | disposition home or self-care (01) ==
LOC: ER 08:34
DX: R11.2 Nausea with vomiting, unspecified (principal); R10.13 Epigastric pain; F12.90 Cannabis use, unspecified, uncomplicated; F15.90 Other stimulant use, unspecified, uncomplicated; Z79.899 Other long term (current) drug therapy
CPT/HCPCS: 36415; 80053; 81001; 83690; 85025; 96361; 96374; 96375; 99284; J0780; J1200; J2270; J2405; J7030

== ENCOUNTER 2023-12-26 17:09 | Emergency (ER) | payer MEDICAID ==
[~2023-12-26] VITALS: Ht 172.7 cm; Wt 52.4 kg
[~2023-12-26 17:09] MED LIST changes: +FAMO40TA73 PO; +ONDA4TAB12 PO; +PANT20TA18 PO
[2023-12-26 17:50] LABS: BASOPHILS % (AUTO) 0.1 % (0-1); EOSINOPHILS % (AUTO) 0 % (0-6); HEMATOCRIT 48.2 % (42.0-52.0); HEMOGLOBIN 16.2 g/dl (14.0-17.9); LYMPHOCYTES # (AUTO) 1.3 X10'3 (1.1-4.8); LYMPHOCYTES % (AUTO) 8.9 % (21-51); MEAN CORPUSCULAR HEMOGLOBIN 30.8 PG (27.0-31.0); MEAN CORPUSCULAR HGB CONC 33.7 g/dL (33.0-36.5); MEAN CORPUSCULAR VOLUME 91.4 FL (78-98); MEAN PLATELET VOLUME 7.9 FL (7.4-10.4); MONOCYTES # (AUTO) 0.7 X10'3 (0-0.9); MONOCYTES % (AUTO) 4.8 % (2-12); NEUTROPHILS # (AUTO) 12.6 X10'3 (1.8-7.7); NEUTROPHILS % (AUTO) 86.2 % (42-75); PLATELET COUNT 357 X10'3 (140-440); RED BLOOD COUNT 5.27 X10'6 (4.70-6.10); RED CELL DISTRIBUTION WIDTH 14.1 % (11.5-14.5); WHITE BLOOD COUNT 14.6 X10'3 (4.5-11.0)
[2023-12-26 18:01] LABS: ALANINE AMINOTRANSFERASE 16 U/L (12-78); ALBUMIN 4.9 G/DL (3.4-5.0); ALBUMIN/GLOBULIN RATIO 1.2 (1.1-1.5); ALKALINE PHOSPHATASE 186 IU/L (46-116); ANION GAP 20 (8-16); ASPARTATE AMINO TRANSFERASE 15 U/L (10-37); BILIRUBIN,TOTAL 0.7 MG/DL (0.1-1.0); BLOOD UREA NITROGEN 13 MG/DL (7-18); BUN/CREATININE RATIO 15.7 (10.0-20.0); CALCIUM 9.3 MG/DL (8.5-10.1); CHLORIDE 97 MMOL/L (99-107); CREATININE 0.83 MG/DL (0.60-1.10); GLUCOSE 133 MG/DL (70-104); LIPASE 18 U/L (16-77); POTASSIUM 3.2 MMOL/L (3.5-5.1); SODIUM 135 MMOL/L (135-145); TOTAL CARBON DIOXIDE 18.5 MMOL/L (24-32); eCRCL 95 ML/MIN; eGFR > 90 ML/MIN
[2023-12-26] MEDS: proCHLORperazine 10 MG/2 ml inj IV ONE (20:44)
[2023-12-26] MEDS: ringers solution, lacted 1,000 ML IV ONE ×2 (20:44→22:34)
[2023-12-26] MEDS: potassium Cl 20 mEq SR tablet PO ONE (20:45)
[2023-12-26] MEDS: diphenhydrAMINE 50 mg/ml inj IV ONE (20:45)
[2023-12-27 00:39] VITALS: BP 115/70; PULSE 81; RESP 16; TEMP 98.6; O2SAT 99
== END 2023-12-27 00:43 | disposition home or self-care (01) ==
LOC: ER 17:10
DX: K29.60 Other gastritis without bleeding (principal); F12.90 Cannabis use, unspecified, uncomplicated; F15.90 Other stimulant use, unspecified, uncomplicated; Z79.899 Other long term (current) drug therapy
CPT/HCPCS: 36415; 80053; 83605; 83690; 85025; 96361; 96374; 96375; 99285; J0780; J1200; J7120

== ENCOUNTER 2024-02-26 02:50 | Emergency (ER) | payer MEDICAID, OTHER ==
[~2024-02-26] VITALS: Ht 172.7 cm; Wt 54.5 kg
[2024-02-26 03:17] VITALS: BP 117/83; PULSE 109; RESP 18; TEMP 97.8; O2SAT 98
[2024-02-27] MEDS ORDERED: ONDA4TAB12 PO (11:32)
== END 2024-02-26 03:32 | disposition left against medical advice (07) ==
LOC: ER 02:51
DX: R11.2 Nausea with vomiting, unspecified (principal); R10.9 Unspecified abdominal pain; R20.0 Anesthesia of skin; Z53.21 Procedure and treatment not carried out due to patient leaving prior to being seen by health care provider

== ENCOUNTER 2024-02-26 06:34 | Inpatient (IN) | payer BC, OTHER ==
[~2024-02-26] VITALS: Ht 172.7 cm; Wt 39.1 kg
[2024-02-26] VITALS (9 sets, daily range): BP systolic 103–132; BP diastolic 59–83; PULSE 71–93; RESP 13–19; TEMP 98.6–99.7; O2SAT 92–100
[2024-02-26 07:40] LABS: BASOPHILS % (AUTO) 0.2 % (0-1); EOSINOPHILS % (AUTO) 0 % (0-6); HEMATOCRIT 55.8 % (42.0-52.0); LYMPHOCYTES # (AUTO) 1.3 X10'3 (1.1-4.8); LYMPHOCYTES % (AUTO) 5.3 % (21-51); MEAN CORPUSCULAR HEMOGLOBIN 31.3 PG (27.0-31.0); MEAN CORPUSCULAR HGB CONC 34.4 g/dL (33.0-36.5); MEAN PLATELET VOLUME 8.6 FL (7.4-10.4); MONOCYTES # (AUTO) 1.9 X10'3 (0-0.9); MONOCYTES % (AUTO) 7.8 % (2-12); NEUTROPHILS # (AUTO) 21.5 X10'3 (1.8-7.7); NEUTROPHILS % (AUTO) 86.7 % (42-75); PLATELET COUNT 350 X10'3 (140-440); RED BLOOD COUNT 6.14 X10'6 (4.70-6.10); WHITE BLOOD COUNT 24.8 X10'3 (4.5-11.0)
[2024-02-26] MEDS: diphenhydrAMINE 50 mg/ml inj IV ONE (07:42)
[2024-02-26] MEDS: acetaminophen 1,000mg/100ml IV 100 ML IV ONE (07:42)
[2024-02-26] MEDS: metoclopramide 5 mg/ml inj IV ONE (07:42)
[2024-02-26] MEDS: normal saline 1000ML IV soln IVB ONE ×2 (07:43→10:56)
[2024-02-26 07:45] LABS: HEMOGLOBIN 19.2 g/dl (14.0-17.9)
[2024-02-26 07:55] LABS: ALANINE AMINOTRANSFERASE 27 U/L (12-78); ALBUMIN/GLOBULIN RATIO 1.3 (1.1-1.5); ALKALINE PHOSPHATASE 221 IU/L (46-116); ANION GAP 21 (8-16); ASPARTATE AMINO TRANSFERASE 13 U/L (10-37); BILIRUBIN,TOTAL 0.8 MG/DL (0.1-1.0); BLOOD UREA NITROGEN 24 MG/DL (7-18); BUN/CREATININE RATIO 6.5 (10.0-20.0); CALCIUM 11.5 MG/DL (8.5-10.1); CHLORIDE 89 MMOL/L (99-107); CREATININE 3.72 MG/DL (0.60-1.10); GLUCOSE 237 MG/DL (70-104); LIPASE 14 U/L (16-77); POTASSIUM 3.4 MMOL/L (3.5-5.1); SODIUM 130 MMOL/L (135-145); TOTAL CARBON DIOXIDE 19.7 MMOL/L (24-32); TOTAL PROTEIN 10.7 G/DL (6.4-8.2); eCRCL 16 ML/MIN; eGFR 19 ML/MIN
[2024-02-26] MEDS: pantoprazole 40 MG vial IV ONE (08:14)
[2024-02-26] MEDS ORDERED: magnesium hydroxide 30ml (MOM) UD suspension PO PRN (10:15)
[2024-02-26] MEDS ORDERED: magnesium 4gm in 100ml NS 100 ML IV PRN (10:15)
[2024-02-26] MEDS ORDERED: mag hydrox/Alum hydrox/simeth 30ml oral suspension PO PRN (10:15)
[2024-02-26] MEDS ORDERED: magnesium 2GM in 50ml NS 50 ML IV PRN (10:15)
[2024-02-26] MEDS ORDERED: LIDOcaine 2% Viscous 15ml cup MM PRN (10:15)
[2024-02-26] MEDS ORDERED: acetaminophen 325mg tablet PO PRN (10:15)
[2024-02-26] MEDS ORDERED: potassium Cl 20 mEq SR tablet PO PRN ×2 (10:15)
[2024-02-26] MEDS ORDERED: magnesium Cl slow-release 64mg tablet PO PRN (10:15)
[2024-02-26] MEDS: morphine 2 MG/ML inj. syringe IV PRN (10:35)
[2024-02-26] MEDS: sucralfate 1 gm tablet PO ONE (10:37)
[2024-02-26] MEDS: mag hydrox/Alum hydrox/simeth 30ml oral suspension PO ONE (10:37)
[2024-02-26] MEDS: pantoprazole 40MG/NS 100ML BAG 100 ML IV SCH (10:37)
[2024-02-26] MEDS: piperacillin/tazo 3.375gm/50ml 50 ML IV SCH (10:40)
[2024-02-26] MEDS: normal saline 1000ml 1,000 ML IV SCH (10:57)
[2024-02-26 10:59] LABS: APTT 31 SECONDS (22-32); INR 1.2 INR; PROTHROMBIN TIME 12.3 SECONDS (9.0-12.0)
[2024-02-26 11:12] LABS: MAGNESIUM 1.8 MG/DL (1.5-2.4)
[2024-02-26] MEDS: nicotine 14mg patch - 24hr TD ONE (12:35)
[2024-02-26 13:54] LABS: BILIRUBIN,URINE SMALL (Neg); CLARITY,URINE SLIGHTLY CLOUDY (Clear); COLOR,URINE YELLOW (Yellow); GLUCOSE, URINE NEGATIVE (Neg); KETONES,URINE TRACE mg/dl (Neg); LEUKOCYTE ESTERASE ,URINE NEGATIVE (Neg); NITRITES, URINE NEGATIVE (Neg); OCCULT BLOOD,URINE TRACE-INTACT (Neg); PROTEIN,URINE 100 mg/dl (Neg); UROBILINOGEN,URINE 0.2 E.U/dL (0.2-1.0)
[2024-02-26 14:00] LABS: UA COLLECTION TYPE CLN CATCH MIDSTREAM
[2024-02-26 14:01] LABS: BACTERIA,URINE NONE SEEN /HPF (Neg); CAL OXALATE CRYSTALS 1+ /HPF (NEGATIVE); HYALINE CASTS 0-3 /LPF (NEGATIVE); MUCUS STRANDS FEW /LPF (Neg); RBC,URINE 0-2 /HPF (0-2); SQUAMOUS EPITHELIAL CELL,UR FEW /LPF (FEW); TRANSITIONAL EPI CELLS,URINE FEW /HPF; WBC,URINE 0-4 /HPF (0-4)
[2024-02-26 14:21] LABS: URINE AMPHETAMINE SCREEN NEGATIVE (Neg); URINE BARBITUATE SCREEN NEGATIVE (Neg); URINE BENZODIAZEPINES SCREEN NEGATIVE (Neg); URINE CANNABINOID SCREEN POSITIVE (Neg); URINE COCAINE SCREEN NEGATIVE (Neg); URINE METHADONE SCREEN NEGATIVE (Neg); URINE PHENCYCLIDINE SCREEN NEGATIVE (Neg)
[2024-02-26] MEDS: potassium Cl 40MEQ/1/2NS 520ml 520 ML IV PRN (14:44)
[2024-02-26] MEDS ORDERED: MIDAZolam 1 MG/ML 5ML VIAL ONE (15:12)
[2024-02-26] MEDS ORDERED: fentaNYL/PF 50MCG/1 ML 2ML syringe ONE (15:12)
[2024-02-26] MEDS ORDERED: LIDOcaine 2% Viscous 15ml cup ONE (15:13)
[2024-02-26] MEDS ORDERED: diphenhydrAMINE 50 mg/ml inj ONE (15:20)
[2024-02-26] MEDS: K and/or MAG REPLACEMENT MC SCH (19:56)
[2024-02-26] MEDS: docusate sod 100mg capsule PO SCH (20:02)
[2024-02-26] MEDS: ondansetron/PF 4mg/2ml inj IV PRN (21:05)
[2024-02-26] MEDS: Melatonin 3mg tablet PO SCH ×2 (22:58→23:05)
[2024-02-27] MEDS: morphine 2 MG/ML inj. syringe IV ONE (00:24)
[2024-02-27 06:00] VITALS: BP 114/79; PULSE 91; RESP 15; TEMP 98.7; O2SAT 99
[2024-02-27 07:01] LABS: BASOPHILS % (AUTO) 0.1 % (0-1); EOSINOPHILS % (AUTO) 0.1 % (0-6); HEMATOCRIT 36.7 % (42.0-52.0); HEMOGLOBIN 12.4 g/dl (14.0-17.9); LYMPHOCYTES # (AUTO) 1.3 X10'3 (1.1-4.8); LYMPHOCYTES % (AUTO) 14.4 % (21-51); MEAN CORPUSCULAR HEMOGLOBIN 31.6 PG (27.0-31.0); MEAN CORPUSCULAR HGB CONC 33.9 g/dL (33.0-36.5); MEAN CORPUSCULAR VOLUME 93.3 FL (78-98); MEAN PLATELET VOLUME 8.5 FL (7.4-10.4); MONOCYTES # (AUTO) 0.8 X10'3 (0-0.9); NEUTROPHILS # (AUTO) 6.9 X10'3 (1.8-7.7); NEUTROPHILS % (AUTO) 76.4 % (42-75); PLATELET COUNT 192 X10'3 (140-440); RED BLOOD COUNT 3.93 X10'6 (4.70-6.10); RED CELL DISTRIBUTION WIDTH 13.5 % (11.5-14.5)
[2024-02-27 07:13] LABS: ANION GAP 9 (8-16); BLOOD UREA NITROGEN 14 MG/DL (7-18); BUN/CREATININE RATIO 21.2 (10.0-20.0); CALCIUM 7.4 MG/DL (8.5-10.1); CHLORIDE 103 MMOL/L (99-107); CREATININE 0.66 MG/DL (0.60-1.10); GLUCOSE 98 MG/DL (70-104); POTASSIUM 3.8 MMOL/L (3.5-5.1); SODIUM 133 MMOL/L (135-145); TOTAL CARBON DIOXIDE 20.8 MMOL/L (24-32); eCRCL 89 ML/MIN; eGFR > 90 ML/MIN
[2024-02-27 08:15] VITALS: RESP 20; O2SAT 99
[2024-02-27 10:15] VITALS: RESP 16
[2024-02-27] MEDS ORDERED: ONDA4TAB12 PO (11:32)
== END 2024-02-27 12:49 | disposition home or self-care (01) | DRG 871 ==
LOC: ER 06:34 → ED HOLD 10:18 → ORTHO 4S 14:45
PROVIDERS: ADMIT Family Medicine; ATTEND Family Medicine
PROC: 0DJ08ZZ Inspection of Upper Intestinal Tract, Via Natural or Artificial Opening Endoscopic (ICD-10-PCS; principal; 2024-02-26)
DX: A41.9 Sepsis, unspecified organism (principal); N17.0 Acute kidney failure with tubular necrosis; Z68.1 Body mass index [BMI] 19.9 or less, adult; R64 Cachexia; R04.0 Epistaxis; F17.210 Nicotine dependence, cigarettes, uncomplicated; E86.0 Dehydration; F31.9 Bipolar disorder, unspecified; Z87.11 Personal history of peptic ulcer disease
CPT/HCPCS: 36415; 43235; 71250; 74176; 76700; 80048; 80053; 80305; 81001; 83605; 83690; 83735; 84145; 85025; 85610; 85730; 87081; 96365; 96375; 99152; 99153; 99285; A4620; C9113; G0378; J0131; J1200; J2250; J2270; J2405; J2543; J2765; J3010; J3480; J7030

== ENCOUNTER 2024-05-12 02:41 | Emergency (ER) | payer BC ==
[~2024-05-12] VITALS: Ht 172.7 cm; Wt 54.5 kg
[~2024-05-12 02:41] MED LIST changes: -FAMO40TA73 PO; -OMEP40CA21 PO; +ONDA-243 PO; -ONDA4TAB12 PO; -PANT20TA18 PO; -SUCR1TAB PO
[2024-05-12] MEDS ORDERED: LORazepam 1 MG tablet PO ONE (02:50)
[2024-05-12 03:15] VITALS: BP 119/82; PULSE 63; RESP 16; TEMP 98.4; O2SAT 98
[2024-05-13] MEDS ORDERED: ERYT1OIN6 EACHEYE (14:41)
== END 2024-05-12 03:18 | disposition home or self-care (01) ==
LOC: ER 02:42
DX: R07.89 Other chest pain (principal); F12.90 Cannabis use, unspecified, uncomplicated; F15.90 Other stimulant use, unspecified, uncomplicated; Z79.899 Other long term (current) drug therapy
CPT/HCPCS: 93005; 99283

== ENCOUNTER 2025-04-17 17:48 | Emergency (ER) | payer BC, MEDICAID ==
[~2025-04-17] VITALS: Ht 172.7 cm; Wt 48.9 kg
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
[2025-04-17 19:41] VITALS: BP 130/76; PULSE 95; RESP 18; TEMP 98.6; O2SAT 99
== END 2025-04-17 19:42 | disposition home or self-care (01) ==
LOC: ER 17:50
DX: S91.332A Puncture wound without foreign body, left foot, initial encounter (principal); Z88.1 Allergy status to other antibiotic agents; W34.00XA Accidental discharge from unspecified firearms or gun, initial encounter; Y93.89 Activity, other specified; Y92.89 Other specified places as the place of occurrence of the external cause; Y99.8 Other external cause status
CPT/HCPCS: 99282

== ENCOUNTER 2025-05-29 11:40 | Emergency (ER) | payer MEDICAID ==
[~2025-05-29] VITALS: Ht 172.7 cm; Wt 51.2 kg
[2025-05-29 11:44] VITALS: TEMP 98.2
[2025-05-29 12:26] LABS: MEAN PLATELET VOLUME 7.2 FL (7.4-10.4); RED CELL DISTRIBUTION WIDTH 14.8 % (11.5-14.5)
[2025-05-29 12:44] LABS: CREATININE 0.89 MG/DL (0.60-1.10); TOTAL CARBON DIOXIDE 24.6 MMOL/L (24-32); eCRCL 85 ML/MIN; eGFR > 90 ML/MIN
[2025-05-29 13:29] LABS: LEUKOCYTE ESTERASE ,URINE NEGATIVE (Neg); NITRITES, URINE NEGATIVE (Neg); OCCULT BLOOD,URINE NEGATIVE (Neg)
[2025-05-29 13:33] LABS: UA COLLECTION TYPE URINAL
[2025-05-29 14:00] VITALS: BP 133/93; PULSE 94; RESP 18; O2SAT 100
== END 2025-05-29 14:19 | disposition left against medical advice (07) ==
LOC: ER 11:41
DX: R10.13 Epigastric pain (principal); R10.11 Right upper quadrant pain; R11.10 Vomiting, unspecified; Z53.21 Procedure and treatment not carried out due to patient leaving prior to being seen by health care provider; Z88.1 Allergy status to other antibiotic agents
CPT/HCPCS: 36415; 80053; 81003; 83690; 85025